=== PATIENT | female | born 1960 | race Caucasian/White ===

== ENCOUNTER → 2017-02-01 | Outpatient (CLI) | payer MEDICAID ==
--- NOTE | 2017-02-02 17:01 | RADRPT ---
Echocardiogram Report Patient Name: NEGAR RODRIGUEZ Gender: Female Date: 1960 Study Date: 01-Feb-2017 Gas Treater: Judith Mayorga RDCS Location: EKG Ref. Physician: NGUYEN AZAR Quality: Good Procedures: Transthoracic echocardiogram with complete 2D, M-Mode, and doppler examination. Indications: Chemotherapy. 2D/M Mode Doppler Measurement Value Normal Ranges Measurement Value Normal Ranges LVIDd 2D 4.8 3.5 - 5.6 cm AV Peak Herber 1.5 m/sec LVIDs 2D 2.8 2.1 - 4.1 cm AV Peak PG 9.0 mmHg FS 2D 41.8 % LVOT Peak Herber 1.2 m/sec LVPWd 2D 0.9 0.6 - 1.1 cm LVOT Peak PG 6.0 mmHg IVSd 2D 0.9 0.6 - 1.1 cm MV E Peak Herber 1.0 m/sec IVS/LVPW 2D 1.1 MV A Peak Herber 0.7 m/sec AoR Diam 2D 2.9 2.0 - 3.7 cm MV E/A 1.4 LA/Ao 2D 1 0 - 1 MV Decel Time 201 msec EDV 2D 110.0 cm3 MV E/A 1.4 ESV 2D 21.7 cm3 TR Peak Herber 1.8 m/sec LA Dimen 2D 3.4 2.3 - 4.0 cm TR Peak PG 13.0 mmHg RVSP 16.0 mmHg Findings Left Ventricle: Normal left ventricular systolic function. Normal left ventricular cavity size. Normal left ventricular wall thickness. Ejection fraction is visually estimated at 65 %. Right Ventricle: Normal right ventricular size. Normal right ventricular systolic function. Left Atrium: The left atrium is normal in size. Right Atrium: The right atrium is normal in size. Mitral Valve: Mitral valve leaflets appear mildly thickened. Mild mitral annular calcification. Trace mitral regurgitation. Aortic Valve: Normal appearance of the aortic valve. No significant aortic stenosis or insufficiency. Tricuspid Valve: Normal appearance and function of the tricuspid valve with trace physiologic regurgitation. Pulmonic Valve: Normal pulmonic valve appearance. There is trace pulmonic regurgitation. Pericardium: Normal pericardium with no significant pericardial effusion. Aorta: Normal aortic root. IVC: Normal size and normal respiratory collapse consistent with normal right atrial pressure. Conclusions 1.Normal left ventricular systolic function. Normal left ventricular cavity size. Normal left ventricular wall thickness. Ejection fraction is visually estimated at 65 %. 2.Normal right ventricular size. Normal right ventricular systolic function. 3.The left atrium is normal in size. 4.The right atrium is normal in size. 5.No significant valvular stenosis or regurgitation seen. 6.Normal pericardium with no significant pericardial effusion. Electronically Signed By: Kashmir Decker 02-Feb-2017 17:00:31 -0700 Patient Name: NEGAR RODRIGUEZ Study Date: 01-Feb-2017 [id number]
== END | disposition home or self-care (01) ==
LOC: EKG 09:21
PROVIDERS: ATTEND Internal Medicine Hematology & Oncology
DX: C50.919 Malignant neoplasm of unspecified site of unspecified female breast (principal)
CPT/HCPCS: 93306

== ENCOUNTER 2017-02-07 07:08 | Day surgery (SDC) | payer MEDICAID ==
[~2017-02-07] VITALS: Ht 167.6 cm; Wt 78.6 kg
[2017-02-07] VITALS (9 sets, daily range): BP systolic 114–143; BP diastolic 65–85; PULSE 66–76; RESP 2–26; Ht 167.6 cm; Wt 78.6 kg
[2017-02-07] MEDS ORDERED: CEFAZOLIN 1 GM/50 ML (PMX) 50 ML IVPB ONE ×2 (08:30→09:19)
[2017-02-07] MEDS ORDERED: SOD CHLORIDE 0.9% 1,000 ML IV SCH (08:30)
[2017-02-07] MEDS ORDERED: POLYMYXIN/BACITRACIN 1L IRRIG IRR ONE (08:30)
[2017-02-07] MEDS ORDERED: HEPARIN 1000 UNITS/ML 10 ML INJ ONE (08:43)
[2017-02-07] MEDS ORDERED: LIDOCAINE 2%/EPI (MDV) 20ML INJ INJ SCH (09:00)
[2017-02-07] MEDS ORDERED: DIPHENHYDRAMINE 50 MG INJ ONE (09:19)
[2017-02-07] MEDS ORDERED: MIDAZOLAM 1 MG/ML 2 ML INJ ONE (09:19)
[2017-02-07] MEDS ORDERED: FENTAnyl 50 MCG/ML VIAL ONE (09:19)
[2017-02-07] MEDS ORDERED: HYDROCODONE/APAP (5/325) TAB PO PRN (11:00)
--- NOTE | 2017-02-07 12:34 | RADRPT ---
PROCEDURE: FLUOROSCOPIC AND ULTRASONOGRAPHIC-GUIDED PLACEMENT OF RIGHT CHEST PORT. CLINICAL INDICATION: History of left breast cancer. Venous access for chemotherapy. TECHNIQUE: INTRAPROCEDURE MEDICATIONS: PB antibiotic solution 40 cc applied topically. 1 gram Ancef intravenous ly, intra-op. IV Versed and Fentanyl per protocol. Informed consent was obtained. The procedure, risks, benefits, complications and alternatives were explained to the patient. Risks including bleeding, infection, and pneumothorax were explained. The patient understood and was willing to proceed. A procedural pause was performed. The patient's name, date of , and procedure to be performed w ere verified. The central line was inserted with all elements of maximal sterile barrier technique. All of the fol lowing were used: head covering, facial mask, sterile gown, sterile gloves, a large sterile sheet, h and hygiene, and 2% chlorhexidine for cutaneous antisepsis. The right neck and anterior/superior chest wall were prepped and draped in usual sterile fashion. Limited sonography of the right neck was then performed. Noted is a patent right internal jugular ve in. Following the local injection of 1% lidocaine, the right internal jugular vein was punctured under s onographic guidance with a 20-gauge needle through which a 0.018 inch floppy tip guidewire was advan moni into the superior vena cava with fluoroscopic guidance. The tract was dilated to 5 [place] and the wire was then replaced with a 0.035 in Amplatz guidewire. Serial dilatation was then performed and a 7 [place] peel away sheath was introduced. A site just inferior to the clavicle in the superior anterior right chest wall was localized. One pe rcent lidocaine was used as local anesthesia. A transverse 2.5 cm incision was made utilizing a 15 b lade scalpel. Utilizing blunt dissection a subcutaneous pocket was created inferior to the incision. The cavity was flushed with approximately 40 cc of PB antibiotic solution. The catheter was tunneled underneath the skin from the newly created pocket to the puncture site in the neck. The central line catheter was pulled through the tract. The catheter was then advanced thr ough the sheath until the tip was positioned in the right atrium. The peel-away sheath was removed. The catheter was flushed and clamped. The 6.6 [place] catheter was then connected to the [employer] power port. The port was then placed into the pocket. Prior to closing the instrument and sponge count was verified and was correct. The subcutaneous tissue was closed with 3-0 Vicryl interrupted suture. The skin at the site of the pock et and in the neck was closed with 4-0 Vicryl suture in a running subcuticular technique. The port w as flushed with 1500 units of heparin in 1.5 cc utilizing a Yanes needle. The needle was removed. A dressing was applied. The patient tolerated procedure well. COMPARISON: None. FINDINGS: Ultrasound images were recorded and stored in the patient's medical record. Final radiographic images demonstrate the tip of the catheter in the upper right atrium. A total of 0.1 minutes of fluoroscopy time was used. The ultrasound images demonstrate the needle entering th e internal jugular vein. IMPRESSION: 1. Successful ultrasonographic and fluoroscopic guided placement of right chest power port. RPTAT: QQ .Jhony Ceja MD, MD Date Time Electronically viewed and signed by .Jhony Ceja MD, on 02/07/2017 12:34 .R/
--- NOTE | 2017-02-07 12:36 | RADRPT ---
PROCEDURE: Ultrasound guidance for placement of needle in right internal jugular vein. CLINICAL INDICATION: Venous access. TECHNIQUE: Prior to the procedure, informed consent was obtained. Risks including bleeding, infection, and pneu mothorax were explained to the patient. The patient understood and was willing to proceed. A procedu ral pause was performed. The patient's name, date of , and procedure to be performed were verif ied. The central line was inserted with all elements of maximal sterile barrier technique. All of th e following were used: head covering, facial mask, sterile gown, sterile gloves, a large sterile she et, hand hygiene, and 2% chlorhexidine for cutaneous antisepsis. The right neck and anterior/super ior chest wall was prepped and draped in usual sterile fashion. Limited sonography of the right neck was then performed. Noted is a patent right internal jugular ve in. Ultrasound images were recorded and stored in the patient's medical record. Following the local injection of Xylocaine, the right internal jugular vein was punctured under sono graphic guidance with a 20-gauge needle through which a 0.018 inch floppy tip guidewire was advanced into the superior vena cava. The patient tolerated the procedure well. The remainder of the proce dure was performed and dictated under separate cover. COMPARISON: None. FINDINGS: The ultrasound images demonstrate a patent right internal jugular vein. The subsequent images demon strate the needle entering the right internal jugular vein. IMPRESSION: 1. Ultrasound guidance for a needle placement in right internal jugular vein. RPTAT: QQ .Jhony Ceja MD, Date Time Electronically viewed and signed by .Jhony Ceja MD, on 02/07/2017 12:36 .R/
== END 2017-02-07 12:40 | disposition home or self-care (01) ==
LOC: SDS 07:08
PROVIDERS: ATTEND Internal Medicine Hematology & Oncology
DX: C50.912 Malignant neoplasm of unspecified site of left female breast (principal)
CPT/HCPCS: 36561; 76942; C1788; J0690; J1200; J1644; J2250; J3010; Z7610